=== PATIENT | female | born 1980 | race Caucasian/White ===

== ENCOUNTER 2017-12-13 23:15 | Emergency (ER) | payer OTHER ==
[~2017-12-13] VITALS: Ht 167.6 cm; Wt 62.1 kg
[2017-12-13 23:19] VITALS: BP_SYST 106
[2017-12-14] MEDS ORDERED: DIPHENHYDRAMINE HCL 25 MG CAPSULE PO ONE
[2017-12-14 00:05] VITALS: BP_SYST 106
== END 2017-12-14 00:05 | disposition home or self-care (01) ==
LOC: SED 23:15
DX: T78.1XXA Other adverse food reactions, not elsewhere classified, initial encounter (principal); R19.8 Other specified symptoms and signs involving the digestive system and abdomen; Z88.6 Allergy status to analgesic agent; X58.XXXA Exposure to other specified factors, initial encounter
CPT/HCPCS: 99282; Q0163